=== PATIENT | male | born 1935 | race Caucasian/White ===

== ENCOUNTER 2017-01-05 14:11 | Emergency (ER) | payer MEDICARE, OTHER ==
--- NOTE | 2017-01-05 14:42 | EDM.PDOC ---
ED HPI GENERAL MEDICAL PROBLEM - General Chief Complaint: General Stated Complaint: CUT FINGER RIGHT HAND Time Seen by Provider: 01/05/17 14:15 Source of Information: Reports: Patient History Limitations: Reports: No Limitations - History of Present Illness INITIAL COMMENTS - FREE TEXT/NARRATIVE: Patient fishing at [facility] and got his fishing lure caught on his right index finger. He did attempt to remove it himself with needle nose pliers, as well as a knife at home. He was unsuccessful and presented here. Onset: Today, Sudden Location: Reports: Upper Extremity, Right ED ROS GENERAL - Review of Systems Review Of Systems: ROS reveals no pertinent complaints other than HPI. ED EXAM, GENERAL - Physical Exam Exam: See Below Exam Limited By: No Limitations General Appearance: Alert, WD/WN, No Apparent Distress Extremities: Redness, Other (right index finger with fish hook medial to the nail bed) Course - Orders/Labs/Meds Meds: Medications Discontinued Medications Generic Name Dose Route Start Last Admin Trade Name Freq PRN Reason Stop Dose Admin Lidocaine HCl 5 ml 01/05/17 14:15 01/05/17 14:22 Xylocaine-Mpf 1% INJECT 01/05/17 14:16 5 ml ONETIME ONE Administration Departure - Departure Time of Disposition: 14:31 Disposition: Home, Self-Care 01 Condition: Good Clinical Impression: Fish hook injury of right index finger - Discharge Information Instructions: Laceration Care, Adult, [id number], Wound Infection, Easy-to- Read Additional Instructions: Follow up with your primary provider as needed Keep clean and dry Read the instructions included in your discharge packet for appropriate care of puncture wounds and signs of wound infection Call with any questions or concerns - Problem List & Annotations (1) Fish hook injury of right index finger SNOMED Code(s): 82034570 Code(s): S69.91XA - UNSP INJURY OF RIGHT WRIST, HAND AND FINGER(S), INIT ENCNTR Status: Acute Priority: Low Qualifiers: Encounter type: initial encounter Qualified Code(s): S69.91XA - Unspecified injury of right wrist, hand and finger(s), initial encounter - Problem List Review Problem List Initiated/Reviewed/Updated: Yes - Assessment/Plan Assessment:: right index finger fish hook removal Plan: Follow up with your primary provider as needed Keep clean and dry Read the instructions included in your discharge packet for appropriate care of puncture wounds and signs of wound infection Call with any questions or concerns
[2017-01-05 15:05] VITALS: BP 159/86
== END 2017-01-05 14:35 | disposition home or self-care (01) ==
LOC: VM.ED 14:11
DX: S60.450A Superficial foreign body of right index finger, initial encounter (principal); W26.9XXA Contact with unspecified sharp object(s), initial encounter
CPT/HCPCS: 99282-GF; 99283

== ENCOUNTER 2017-10-22 12:55 | Emergency (ER) | payer MEDICARE, OTHER ==
[2017-10-22 13:07] VITALS: BP 170/74
--- NOTE | 2017-10-23 04:23 | EDM.PDOC ---
ED HPI GENERAL MEDICAL PROBLEM - General Chief Complaint: Upper Extremity Injury/Pain Stated Complaint: FISH HOOK IN FINGER Time Seen by Provider: 10/22/17 12:55 Source of Information: Reports: Patient History Limitations: Reports: No Limitations - History of Present Illness INITIAL COMMENTS - FREE TEXT/NARRATIVE: Pt. got a fish hook stuck in his L index finger last night. The hook broke, and the distal part of the hook is still stuck in the finger. Tetanus is UTD Onset Date: 10/21/17 Location: Reports: Upper Extremity, Left Right 2-Index finger Pain Score (Numeric/FACES): 1 - Related Data Allergies Allergy/AdvReac Type Severity Reaction Status Date / Time tetracycline Allergy Cannot Verified 10/22/17 13:11 Remember Home Meds: Home Meds Aspirin 81 mg PO BRK 01/05/17 [History] Hydroxyurea [Droxia] 200 mg PO DAILY 01/05/17 [History] Lisinopril [Prinivil] 10 mg PO DAILY 01/05/17 [History] Multivitamin [Multivitamins] 1 each PO DAILY 01/05/17 [History] traMADol [Ultram] 50 mg PO Q12H PRN 01/05/17 [History] Levothyroxine Sodium [Synthroid] 0 mcg PO DAILY 10/22/17 [History] Past Medical History Cardiovascular History: Reports: Hypertension Musculoskeletal History: Reports: Arthritis Endocrine/Metabolic History: Reports: Hypothyroidism Hematologic History: Reports: Idiopathic Thrombocytopenia Social & Family History - Tobacco Use Smoking Status *Q: Unknown Ever Smoked Review of Systems - Review of Systems Review Of Systems: See Below Musculoskeletal: Reports: No Symptoms, Hand Pain ED EXAM, GENERAL - Physical Exam Exam: See Below Extremities: Normal Inspection, Normal Range of Motion, Non-Tender, No Pedal Edema, Normal Capillary Refill, Other (fish hook noted in L index finger) ED TRAUMA EXTREMITY PROCEDURES - Foreign Body Removal Consent Obtained: Patient Performing Doctor:: Harpreet Mederos Anesthesia Type: Local (2 cc 1% lido) Findings:: finger cleansed and anesthetized the fish hook was removed with hemostats Course - Vital Signs Last Recorded V/S: Last Vital Signs Temp 36.3 C 10/22/17 13:00 Pulse 79 10/22/17 13:00 Resp 18 10/22/17 13:00 BP 170/74 H 10/22/17 13:00 Pulse Ox 95 10/22/17 13:00 - Orders/Labs/Meds Meds: Medications Discontinued Medications Generic Name Dose Route Start Last Admin Trade Name Praful PRN Reason Stop Dose Admin Lidocaine HCl 5 ml 10/22/17 13:22 10/22/17 13:40 Xylocaine-Mpf 1% INJECT 10/22/17 13:23 5 ml ONETIME ONE Administration Departure - Departure Time of Disposition: 13:52 Disposition: Home, Self-Care 01 Clinical Impression: Fish hook injury of finger - Discharge Information Instructions: Laceration Care, Adult Forms: ED Department Discharge Additional Instructions: Keep bandage on until tomorrow. Then leave open to the air. Return if redness, swelling, or discharge.
== END 2017-10-22 13:52 | disposition home or self-care (01) ==
LOC: VM.ED 12:55
DX: S60.451A Superficial foreign body of left index finger, initial encounter (principal); Z88.1 Allergy status to other antibiotic agents; Z79.899 Other long term (current) drug therapy; I10 Essential (primary) hypertension; E03.9 Hypothyroidism, unspecified; W45.8XXA Other foreign body or object entering through skin, initial encounter
CPT/HCPCS: 10120; 99282; 99283-GF-25

== ENCOUNTER 2022-02-27 18:00 | Emergency (ER) | payer OTHER, MEDICARE ==
[2022-02-27 18:33] LABS: CHLORIDE,CL 96 mmol/L (98-107); PTT,PARTIAL THROMBOPLSTIN TIME 30.8 SEC (20.5-30.9); SODIUM,NA 130 mmol/L (136-145)
[2022-02-27 18:34] LABS: ANION GAP 13.5 mmol/L (5-15); ESTIMATED GFR 74 mL/min (>=60)
[2022-02-27 19:06] VITALS: BP 131/74; PULSE 89
== END 2022-02-27 23:55 | disposition home or self-care (01) ==
LOC: VM.ED 18:00
DX: M54.50 Low back pain, unspecified (principal); M54.2 Cervicalgia; I10 Essential (primary) hypertension; Z79.01 Long term (current) use of anticoagulants; Z88.1 Allergy status to other antibiotic agents; Z79.899 Other long term (current) drug therapy; V49.40XA Driver injured in collision with unspecified motor vehicles in traffic accident, initial encounter; Y92.410 Unspecified street and highway as the place of occurrence of the external cause
CPT/HCPCS: 36415; 70450; 71250; 72125; 73650-RT; 74176; 80053; 85025; 85610; 85730; 99284; 99285